=== PATIENT | female | born 1940 | race Hispanic/Latino ===

== ENCOUNTER 2020-01-04 16:23 | Inpatient (IN) | payer MEDICARE ==
[~2020-01-04] VITALS: Ht 157.5 cm; Wt 70.4 kg
[~2020-01-04 16:23] MED LIST: AMIODARONE HCL200 MG PO; AMLODIPINE BESY10 MG PO; ATORVASTATIN CA10 MG PO; DIGOXIN125 MCG PO; GLUCOPHAGE XR750 MG PO; IPRATROPIU0.2 MG/1 M NEB; KEFLEX500 MG PO; LACTULOSE20 GM/30 M PO; METOPROLOL SUCC25 MG PO; METOPROLOL TART50 MG PO; NORCO 7.5-3251 EACH PO; PHENERGAN SUPP25 MG RC; VITAMIN D400 UNIT PO; XARELTO10 MG PO; XARELTO20 MG PO; ZOFRAN4 MG PO
[2020-01-04] MEDS ORDERED: ONDANSETRON HCL INJ 2MG/ML 2ML 2 MG/ML VIAL IV STA (16:48)
[2020-01-04] MEDS ORDERED: SODIUM CHLORIDE 0.9% 1000ML 1,000 ML IV STA (16:48)
--- NOTE | 2020-01-04 17:03 | NUR ---
1 LITER NS BOLUS INITIATED, 4 MG ZOFRAN GIVEN SIVP
[2020-01-04 17:20] LABS: BASOPHILS # (AUTO) 0.1 (0.0-0.1); BASOPHILS % 0.7 % (0.0-1.0); EOSINOPHILS # (AUTO) 0.2 (0.0-0.4); EOSINOPHILS % 3.1 % (0.0-6.0); HEMOGLOBIN 15.9 g/dL (12.0-16.0); LYMPHOCYTES # (AUTO) 1.1 (1.0-3.2); LYMPHOCYTES % 14.7 % (18.0-39.1); MEAN CORPUSCULAR HEMOGLOBIN 29.4 pg (28-32); MEAN CORPUSCULAR HGB CONC 33.1 g/dL (31-35); MEAN CORPUSCULAR VOLUME 88.9 fL (81-99); MONOCYTES # (AUTO) 0.6 (0.2-0.8); MONOCYTES % 7.7 % (4.4-11.3); NEUTROPHILS # (AUTO) 5.5 (2.1-6.9); NEUTROPHILS % 72.6 % (38.7-80.0); PLATELET COUNT 248 x10e3/uL (140-360); RED CELL DISTRIBUTION WIDTH 17.1 % (11.7-14.4)
[2020-01-04 17:32] LABS: INR 2.11; PARTIAL THROMBOPLASTIN TIME 36.5 seconds (23.8-35.5); PROTHROMBIN TIME 25.2 seconds (11.9-14.5)
--- NOTE | 2020-01-04 17:33 | Diagnostic Imaging Report ---
EXAM: CHEST SINGLE (PORTABLE) DATE: 01/04/2020 4:48 PM INDICATION: Dark urine ^ERMD ORDER ^Y COMPARISON: Chest x-ray, 12/06/2019; chest CT, 12/02/2019 FINDINGS: Lines and tubes: None Cardiac silhouette remains enlarged. Opacity at the left lung base is again seen likely corresponding to mitral annular calcifications seen on previous CT. No pulmonary consolidation, large pleural effusion or pneumothorax. Mild central pulmonary vascular prominence. Upper abdomen unremarkable. No acute bony abnormality. Degenerative changes at the shoulders are again noted. IMPRESSION: Cardiomegaly with no pulmonary consolidation or artery pleural effusion. Mild central pulmonary vascular prominence. Signed by: Dr. Hilario Avila M.D. on 01/04/2020 5:30 PM
[2020-01-04 17:42] LABS: ALBUMIN 2.9 g/dL (3.5-5.0); ALBUMIN/GLOBULIN RATIO 0.7 (0.8-2.0); ANION GAP 17.2 mmol/L (8-16); CALCIUM 8.8 mg/dL (8.4-10.2); CREATININE, SERUM 1.42 mg/dL (0.57-1.11); MAGNESIUM 1.9 MG/DL (1.3-2.1); POTASSIUM 4.2 mmol/L (3.5-5.1)
[2020-01-04 17:44] LABS: CLARITY,URINE TURBID (CLEAR); COLOR,URINE BROWN (YELLOW)
[2020-01-04 17:45] LABS: BILIRUBIN,URINE 3+ (NEGATIVE); KETONES,URINE NEGATIVE (NEGATIVE); LEUKOCYTE ESTERASE ,URINE LARGE (NEGATIVE); PROTEIN,URINE DIPSTICK 3+ (NEGATIVE); URINE UROBILINOGEN 0.2 mg/dL (0.2 - 1)
[2020-01-04 17:52] LABS: CREATINE KINASE MB 2.8 ng/mL (0-5.0)
[2020-01-04 17:56] LABS: BACTERIA,URINE MANY /HPF; EPITHELIAL CELLS,URINE FEW /LPF; NITRITE,URINE POSITIVE (NEGATIVE); RBC,URINE 21-50 /HPF (0-5)
[2020-01-04] MEDS ORDERED: ONDANSETRON HCL INJ 2MG/ML 2ML 2 MG/ML VIAL IV PRN (19:00)
[2020-01-04] MEDS ORDERED: MORPHINE SULFATE INJ 4 MG/ML INJ 1ML IV PRN (19:00)
[2020-01-04] MEDS ORDERED: ASPIRIN 81 MG CHEW TAB PO ONE (19:00)
[2020-01-04] MEDS: CEFTRIAXONE SOD 1 GM/NS 50 ML 50 ML IV SCH (19:42)
[2020-01-04] MEDS: SODIUM CHLORIDE 0.9% 1000ML 1,000 ML IV SCH (20:00)
[2020-01-04] MEDS: ATORVASTATIN 10 MG TAB PO SCH (21:45)
[2020-01-04 23:15] VITALS: BP 138/76
[2020-01-04 23:30] VITALS: BP 138/76
[2020-01-05] VITALS (8 sets, daily range): BP systolic 127–143; BP diastolic 63–86
[2020-01-05 02:42] LABS: CREATINE KINASE MB 0.9 ng/mL (0-5.0)
[2020-01-05] MEDS: SODIUM CHLORIDE 0.9% 1000ML 1,000 ML IV SCH ×3 (05:25→17:54)
[2020-01-05 05:27] LABS: BASOPHILS # (AUTO) 0.1 (0.0-0.1); BASOPHILS % 0.8 % (0.0-1.0); EOSINOPHILS # (AUTO) 0.3 (0.0-0.4); EOSINOPHILS % 4.5 % (0.0-6.0); HEMOGLOBIN 14.3 g/dL (12.0-16.0); LYMPHOCYTES # (AUTO) 1.4 (1.0-3.2); LYMPHOCYTES % 21.4 % (18.0-39.1); MEAN CORPUSCULAR HEMOGLOBIN 29.3 pg (28-32); MEAN CORPUSCULAR HGB CONC 31.8 g/dL (31-35); MEAN CORPUSCULAR VOLUME 92.2 fL (81-99); MONOCYTES # (AUTO) 0.6 (0.2-0.8); MONOCYTES % 9.1 % (4.4-11.3); NEUTROPHILS % 62.8 % (38.7-80.0); PLATELET COUNT 183 x10e3/uL (140-360); RED BLOOD COUNT 4.88 x10e6/uL (3.6-5.1); RED CELL DISTRIBUTION WIDTH 16.6 % (11.7-14.4)
[2020-01-05] MEDS: CEFTRIAXONE SOD 1 GM/NS 50 ML 50 ML IV SCH ×2 (06:00→18:00)
[2020-01-05 06:01] LABS: CREATINE KINASE MB 1.4 ng/mL (0-5.0)
[2020-01-05 06:17] LABS: ALBUMIN 2.4 g/dL (3.5-5.0); ALBUMIN/GLOBULIN RATIO 0.9 (0.8-2.0); ANION GAP 14.5 mmol/L (8-16); CALCIUM 7.9 mg/dL (8.4-10.2); CREATININE, SERUM 1.18 mg/dL (0.57-1.11)
[2020-01-05 06:23] LABS: POTASSIUM 2.5 mmol/L (3.5-5.1)
--- NOTE | 2020-01-05 06:40 | NUR ---
Notified Dr Ulloa regarding lab alert potassium 2.5. Potassium chloride 30mEq IV X1, potassium chloride 20mEq po x1, recheck BMP 1200
[2020-01-05] MEDS ORDERED: POTASSIUM CHLORIDE 20 MEQ TAB CR PO NR (06:50)
[2020-01-05] MEDS ORDERED: POTASSIUM CHLORIDE 10MEQ/100ML 300 ML IV ONE (06:55)
--- NOTE | 2020-01-05 07:27 | NUR ---
Bedside report and walking rounds completed with oncoming nurse. Patient stable and in bed, no issues or concerns noted. Call light within reaching.
[2020-01-05] MEDS ORDERED: POTASSIUM CHLORIDE 20 MEQ TAB CR PO ONE (07:50)
--- NOTE | 2020-01-05 08:11 | NUR ---
ADDED NOTE; PRIMARY NURSE NEEDED PHONE NUMBERS ADDED FOR PT FAMILY GIVEN BY PATIENT. HANNAH FRAZIER: [phone] GRANDDAUGHTER PUNEET MCKEONA: [phone] DAUGHTER IN LAW
--- NOTE | 2020-01-05 10:28 | NUR ---
H&P cc: generalized weakness HPI: 78yoF, PCP , developed generalized weakness, not eating for weeks due to intractable N/V. Family states finally convinced pt to get PEG. Has chr morales for urinary retention. PMH: HTN, HLD, DM2, Obesity, Septic Shock, Acute respirature failure,Left HAP, MARINA, E.coli UTI, Hyperkalemia, Severe anemia s/p transfusion, A.fib, urinary retention s/p morales PSHx: hysterectomy, left hip due to fx, c-sec, knee allergies; see emr Fh/SH; no illicits; no cigs meds; see MAR ROS: unobtainable v/s revd PE: anicteric ns1s2 mod bs; MORALES soft nt nd no e/t; SCD skin dry flat affect labs/meds revd A/P: MARINA- IVF Complicated UTI-iv abx Indwelling morales/Chr morales due to Urinary retention- consult urology Hypokalemia- replace Dysphagia- GI for PEG PAF- AV blockade DM2- hba1c/lipids HTN- treat HLD Physical deconditioning- PT consult Prop: AC Dispo: Hold AC; PEG placement needed per family. Melecio Ulloa MD, PhD.
[2020-01-05] MEDS ORDERED: LACTULOSE SYRUP 20 GM/30 ML UDC PO PRN (10:30)
[2020-01-05] MEDS ORDERED: ACETAMINOPHEN 325 MG TAB PO PRN (10:30)
[2020-01-05] MEDS ORDERED: DOCUSATE SODIUM 100 MG CAP PO PRN (10:30)
[2020-01-05 12:19] LABS: CALCIUM 7.9 mg/dL (8.4-10.2); CREATININE, SERUM 1.14 mg/dL (0.57-1.11)
[2020-01-05 12:40] LABS: CREATINE KINASE MB 1.5 ng/mL (0-5.0)
[2020-01-05] MEDS: METOPROLOL TARTRATE 50 MG TAB PO SCH ×2 (13:00→21:45)
--- NOTE | 2020-01-05 16:00 | NUR ---
PT RECEIVED FROM [facility]. AAOX4. EDUCATED PT ABOUT FALL PRECAUTIONS. CALL LIGHT WITH IN EASY REACH. INSTRUCTED PT TO USE CALL LIGHT FOR ALL THE NEEDS. PT VERBALIZED UNDERSTANDING. FAMILY MEMBER AT BEDSIDE. BED IS LOW AND LOCKED. SIDE RAILS X2. BED ALARM IS ON. PT DENIES NEEDS AT THIS TIME.
[2020-01-05] MEDS: AMIODARONE HCL 200 MG TAB PO SCH (17:54)
--- NOTE | 2020-01-05 18:37 | NUR ---
Nutrition Intervention Note RD Recommendation(s) for Physician: -Encourage Glucerna nutrition supplements -Recommend consistent carbohydrate diet -Consider an appetite stimulant or nutrition support as medically appropriate due to poor PO intake The patient meets criteria for unspecified SEVERE protein-calorie malnutrition. Plan of Care: RD following, monitoring for tolerance and adequacy Nutrition reason for involvement: Nutrition Risk Trigger - MST 5 RD Assessment (01/05/2020) Pt is a 79 year old female admitted with failure to thrive, weakness, and UTI. Pt reports not eating much for the past month. Pt reports she had lost weight in the past month but was unsure of her usual weight. Per weight history in chart, pt weighed 168 lbs in November and currently has a weight of 155 lbs in chart. This would be 8% weight loss in 1 month significant weight loss. Pt also mentioned she has been experiencing N/V. Pt refused nutrition supplements when offered. Per MD note, a PEG tube is being considered. Will continue to monitor. Principal Problems/Diagnoses: failure to thrive, weakness, and UTI PMH: HTN, HLD, diabetes, obesity, septic shock, acute respiratory failure, afib, severe anemia, MARINA, and UTI GI: soft, non-tender abdomen Skin: stage 1 pressure ulcer to sacrum Labs: (01/05) Na 146, K 3.0, Cr 1.14, Ca 7.9 Meds: NaCl, metroprolol, colace, lactulose, atorvastatin, zofran Ht: 62 inches Wt: 155 lbs BMI: 28.4 kg/m2 IBW: 110 lbs Malnutrition Evaluation (01/05/2020 The patient meets criteria for unspecified SEVERE protein-calorie malnutrition. Energy intake: <75% of estimated energy requirements for 1 month Weight loss: > 5% in 1 month (Chronic) Fat loss: no loss identified Muscle loss: no loss identified Supporting Evidence: Fluid accumulation: unable to evaluate Functional Status: unable to evaluate Nutrition Prescription (Diet Order): cardiac diet Estimated Nutritional Needs: 0341-0245 calories/day (18-20 kcal/kg CBW) 70-106 g protein/day (1-1.5 g pro/kg CBW) Diet Adequacy: Not meeting calorie needs, Not meeting protein needs Tolerance: Tolerance pending Diet Education Needs Assessment: Diet education not indicated Nutrition Care Level: moderate Nutrition Diagnosis: Severe protein kcal malnutrition related to inadequate energy intake as evidenced by pt meeting <75% of estimated energy needs for 1 month and >5% weight loss in 1 month. Goal: Patient will meet 75-100% of estimated needs by follow up Progress: N/A Interventions: -carbohydrate - modified diet, Commercial beverage, , Recommended Modifications Monitoring/Evaluation: -Total energy intake, Total protein intake, , Modified diet, Liquid supplement, Weight change Signed: Elizabeth Aleman RD, LD
--- NOTE | 2020-01-05 19:10 | NUR ---
Patient visited in room during nursing rounds. Patient alert and oriented x3. No c/o discomfort or pain at this time. Pt notable weak especially on bilateral lower extremities. Patient has urinary retention and is currently on a 24french morales cather but will be replaced tonight with 18 occitan morales catheter as per order from Dr. Aramis Plascencia. Urine culture to be collected. Pt on IVF (NS at 125ml/hr). Stage 1 to sacrum and covered with Allevyn foam (C/D/I). Pt being turned Q2 hrs. Call pickard within reach.
--- NOTE | 2020-01-05 19:20 | NUR ---
BEDSIDE SHIFT REPORT GIVEN TO THE OFFICE HELPER RN. PT NEEDS NEW SANABRIA 18 FR AND NEW URINE CULTURE AFTER NEW SANABRIA INSERTION. ON COMING NURSE AWARE. PT REQUESTED A FEMALE NURSE TO INSERT SANABRIA. PT DENIED FURTHER NEEDS.
--- NOTE | 2020-01-05 20:15 | NUR ---
24F morales catheter removed. 18F Morales catheter placed with Karissa Ferreira RN, using sterile technique. approximately 100cc osullivan colored, cloudy urine noted. Morales secured appropriately to patients leg and bag placed below the patient to bed. Morales catheter placed for urinary retention per orders.
--- NOTE | 2020-01-05 20:15 | NUR ---
24 turkmen morales catheter was removed by Rebecca (CN) and Geovanna (staff nurse) and inserted or replaced with 18 turkmen morales catheter. Urine appear milky at this time and urine culture will be obtained as per MD order.
[2020-01-05] MEDS ORDERED: ZOLPIDEM TARTRATE 5 MG TAB PO PRN (21:00)
--- NOTE | 2020-01-05 21:47 | NUR ---
Pt escorted to radiology department via hospital bed for CT of abdomen and pelvis as ordered by .
--- NOTE | 2020-01-05 22:10 | NUR ---
Patient back in room from having CT of abdomen and pelvis. Pt in stable condition.
--- NOTE | 2020-01-05 22:44 | Diagnostic Imaging Report ---
CT Abdomen and Pelvis without contrast INDICATION: ^STONE PROTOCOL. UTI'S. URINARY RETENTION. TECHNIQUE: Thin collimation axial images obtained from the diaphragm to the level of the pubic symphysis without nonionic intravenous contrast. Dose reduction techniques used: Automated exposure control, adjustment of the mAs and/or kVp according to patient size, standardized low-dose protocol, and/or iterative reconstruction technique. RADIATION DOSE: Total DLP: 443.77 mGy*cm Estimated effective dose: (DLP x 0.015 x size factor) mSv CTDIvol has been reviewed. It is below the limits set by the Radiation Protocol Committee (RPC). COMPARISON: CT chest 12/02/2019. CT chest 11/10/2019 ABDOMEN FINDINGS: Lung Bases: Small left pleural effusion. Mild bibasilar atelectasis. The heart is enlarged with heavy calcifications of the mitral valve. Liver: Increased in attenuation. Multiple low attenuating lesions in each lobe measure up to 15 mm. Gallbladder: Present and is filled with hyperattenuating material and is stable in appearance. No ductal dilatation. Pancreas: Normal attenuation without mass. Spleen: Normal size without mass. Adrenal Glands: No evidence for mass. Kidneys: Right: No renal calculus. No cortical mass or hydronephrosis Left: No renal calculus. No cortical mass or hydronephrosis Lymph Nodes: No lymphadenopathy. Aorta: Scattered calcifications. No aneurysmal dilatation. PELVIS FINDINGS: Bowel: Stomach: Normal. Small Bowel: Normal in caliber with normal wall thickness. Large Bowel: Collapsed and contains high attenuating intraluminal material. Appendix: Not visualized. Bladder: Contains a Lipscomb catheter and small amount of high attenuating intraluminal material layering dependently. Ureters: No ureteral dilatation or calculus. The uterus is absent. No adnexal mass. Soft tissues: Unremarkable. Bones: Intramedullary cielo and pin in the left femur transfixing an intertrochanteric fracture into anatomic alignment without healing. Degenerative changes of the spine without compression deformity. There is retrolisthesis of L1 on L2, L2 on L3, and L3 on L4 of approximately 2 mm. A hemangioma is in L1. IMPRESSION: 1. Small amount of increased attenuation layering dependently in the urinary bladder may represent gravel or excreted contrast. 2. No evidence of renal calculus or obstructive uropathy. 3. High attenuation of the liver parenchyma may be the result of hepatocellular dysfunction or medication. 4. Hypoattenuation of the intraluminal contents of the gallbladder are stable suggestive of sludge. 5. Small left pleural effusion. Stable cardiomegaly. Signed by: Dr. Jovanna Mtz MD on 01/05/2020 10:26 PM
[2020-01-06] VITALS (8 sets, daily range): BP systolic 135–165; BP diastolic 71–88
--- NOTE | 2020-01-06 00:30 | NUR ---
Dr. Long Calixto came and visited pt in room. MD spoke to patient and obtained medical history. MD aware of patient condition and provided pt some options including possibly stretching or opening up esophagus and reglan IV medication every 6 hours. Pt elected to have reglan IV and stated she wants to think about the procedure involving the esophagus. MD informed pt important to decide very soon. Pt aware.
--- NOTE | 2020-01-06 00:49 | Consultation ---
DATE OF CONSULTATION: 01/05/2020 Urology Consultation REASON FOR CONSULTATION: Chronic urinary retention. HISTORY OF PRESENT ILLNESS: Dora Mancia is a 79-year-old woman, who had a fall. She had a femur fracture. She underwent ORIF of her femur fracture with a cielo. The patient was noted to have urinary retention. It has been persistent. She has had urinary tract infections. The patient's home health nurse was changing her Lipscomb catheter. The patient is admitted with problems eating and urological consultation was sought for the urinary retention. The patient denies previous stress and urinary incontinence. She denies previous urolithiasis. She denies any bladder surgery. She denies ever seeing a urologist. PAST MEDICAL AND SURGICAL HISTORY: 1. Hypertension. 2. Diabetes mellitus. 3. Coronary artery disease. 4. Urinary tract infections. 5. Atrial fibrillation. 6. Anxiety. 7. Hyperlipidemia. 8. History of pneumonia. 9. History of respiratory failure. 10. Obesity. 11. 4, para 4, by section. 12. Status post total abdominal hysterectomy, bilateral salpingo-oophorectomy. ALLERGIES: NIACIN. CURRENT MEDICATIONS: Please refer to the MAR. SOCIAL HISTORY: The patient denies smoking, ethanol, or drug use. She used to be in retail and also in retail management. FAMILY HISTORY: Noncontributory to the active urological problems. REVIEW OF SYSTEMS: Consistent with above history of present illness, past medical history, otherwise negative for all systems. PHYSICAL EXAMINATION: GENERAL: Relatively healthy-appearing 79-year-old woman, lying in bed, in no apparent distress. VITAL SIGNS: She is currently afebrile. Vital signs are currently stable. ABDOMEN: Soft, nondistended, and nontender without costovertebral angle tenderness. There is a healed infraumbilical midline scar. GENITOURINARY: There is an 18-Venezuelan silicone Lipscomb catheter with a 30 mL balloon. The patient reports that the catheter is uncomfortable for her. Internal examination is deferred. For the remaining physical examination systems, please refer to the ERT sheet and the history and physical. LABORATORY STUDIES: Urine culture is positive for gram-negative rods and enterococcus and a 2nd gram negative rods and sensitivities are pending. White blood cell count 6400, hemoglobin 14.3, and platelets 183,000. The patient's sodium is slightly elevated at 146. Her potassium is low at 3.0. Her creatinine is elevated at 1.14. The calcium is low at 7.9. Urinalysis significant for pyuria and microhematuria and bacteriuria. Urine culture is pending. There were no urologically significant radiographic studies in the computer. ASSESSMENT: 1. Urinary tract infections including one present on admission. 2. Chronic urinary retention. 3. Hyponatremia. 4. Hypokalemia. 5. Presumably chronic renal insufficiency. 6. Hypocalcemia. 7. Microhematuria. 8. Lipscomb catheter in situ. PLAN: 1. Change the Lipscomb catheter to latex Lipscomb catheter with 18-Venezuelan with 10 mL balloon. 2. I will order CT of the abdomen and pelvis due to the renal insufficiency and the recurrent urinary retention and chronic Lipscomb to determine whether there is any urolithiasis or any other etiology for urinary tract infections. 3. Leave the Lipscomb catheter in place for now. 4. The patient will follow up for urodynamics study in the office as an outpatient. 5. Ongoing urological followup is recommended. Thank you very much for involving us in the care of your patient. We will be happy to follow her along with you as well as an outpatient. Aramis Plascencia MD [place]/[facility]YS /[id number]
[2020-01-06] MEDS: METOCLOPRAMIDE HCL 10 MG/2ML VIAL IV SCH ×5 (01:37→23:43)
[2020-01-06] MEDS: SODIUM CHLORIDE 0.9% 1000ML 1,000 ML IV SCH ×3 (02:59→18:05)
--- NOTE | 2020-01-06 06:17 | NUR ---
Progress note O/N see below ROS: no f/c/s/VELÁZQUEZ/cp/confusion/leg pain/skin rash/tinnitus/back pain v/s revd PE: anicteric ns1s2 mod bs; MORALES soft nt nd no e/t; SCD skin dry flat affect labs/meds revd A/P: MARINA- IVF Complicated UTI-iv abx Indwelling morales/Chr morales due to Urinary retention- consult urology Hypokalemia- replace Dysphagia- GI for PEG PAF- AV blockade DM2- hba1c/lipids HTN- treat HLD Physical deconditioning- PT consult Prop: AC Dispo: Hold AC; PEG placement needed per family. 2-22 use lovenox while here; GNR UTI; cont abx; await PEG. Melecio Ulloa MD, PhD.
[2020-01-06] MEDS: CEFTRIAXONE SOD 1 GM/NS 50 ML 50 ML IV SCH ×2 (06:27→18:31)
--- NOTE | 2020-01-06 07:05 | NUR ---
RCD PT AT BED PT IS ALERT AND ORIENTED PT RESTING ON BED NO SIGNS OF ANY DISTRESS NOTED IV PATENT BY SALINE FLUSH BED LOW AND LOCKED CALL LIGHT IN REACH
[2020-01-06 07:49] LABS: ANION GAP 14.6 mmol/L (8-16); CALCIUM 7.9 mg/dL (8.4-10.2); CREATININE, SERUM 1.07 mg/dL (0.57-1.11); POTASSIUM 3.6 mmol/L (3.5-5.1)
[2020-01-06] MEDS: METOPROLOL TARTRATE 50 MG TAB PO SCH ×2 (09:00→23:43)
[2020-01-06] MEDS: RIVAROXABAN 20 MG TABLET PO SCH (09:00)
[2020-01-06] MEDS: AMIODARONE HCL 200 MG TAB PO SCH ×2 (09:00→17:00)
--- NOTE | 2020-01-06 18:40 | NUR ---
PT RESTING ON BED BED SIDE REPORT GIVEN TO ONCOMING NURSE
[2020-01-06] MEDS: ATORVASTATIN 10 MG TAB PO SCH (21:00)
[2020-01-07] VITALS (8 sets, daily range): BP systolic 139–175; BP diastolic 82–96
[2020-01-07] MEDS ORDERED: PANTOPRAZOLE 40 MG 10ML VIAL IV SCH (02:30)
[2020-01-07] MEDS: METOCLOPRAMIDE HCL 10 MG/2ML VIAL IV SCH ×3 (05:22→17:50)
[2020-01-07] MEDS: SODIUM CHLORIDE 0.9% 1000ML 1,000 ML IV SCH (05:22)
[2020-01-07] MEDS: CEFTRIAXONE SOD 1 GM/NS 50 ML 50 ML IV SCH (06:07)
--- NOTE | 2020-01-07 07:23 | NUR ---
Progress note O/N see below ROS: no f/c/s/VELÁZQUEZ/cp/confusion/leg pain/skin rash/tinnitus/back pain v/s revd PE: anicteric ns1s2 mod bs; MORALES soft nt nd no e/t; SCD skin dry flat affect labs/meds revd A/P: MARINA- IVF Complicated UTI-iv abx Indwelling morales/Chr morales due to Urinary retention- consult urology Hypokalemia- replace Dysphagia- GI for PEG PAF- AV blockade DM2- hba1c/lipids HTN- treat HLD Physical deconditioning- PT consult Prop: AC Dispo: Hold AC; PEG placement needed per family. 01-06 use lovenox while here; GNR UTI; cont abx; await PEG. 01/07 give free water; check labs; Melecio Ulloa MD, PhD.
[2020-01-07] MEDS ORDERED: DEXTROSE 5%/0.45% SOD CHL 1,000 ML IV ONE (07:30)
[2020-01-07] MEDS: AMIODARONE HCL 200 MG TAB PO SCH ×2 (09:00→17:00)
[2020-01-07] MEDS: PANTOPRAZOLE 40 MG 10ML VIAL IV SCH ×2 (09:00→21:57)
[2020-01-07] MEDS: METOPROLOL TARTRATE 50 MG TAB PO SCH ×2 (09:00→21:57)
[2020-01-07 09:16] LABS: ANION GAP 17.1 mmol/L (8-16); CALCIUM 7.9 mg/dL (8.4-10.2); CREATININE, SERUM 1.03 mg/dL (0.57-1.11); POTASSIUM 3.1 mmol/L (3.5-5.1)
--- NOTE | 2020-01-07 10:00 | NUR ---
PAGED AND NOTIFIED THE POTASSIUM LEVEL TO DR WARD AND GOT NEW ORDERS
[2020-01-07] MEDS ORDERED: POTASSIUM CHLORIDE 20 MEQ TAB CR PO ONE (10:10)
--- NOTE | 2020-01-07 15:00 | NUR ---
PAGED DR WARD AND NOTIFIED THE URINE CULTURE REPORT AND NOTIFIED THE SENSITIVITY REPORT GOT NEW ORDERS
[2020-01-07] MEDS: MEROPENEM 500MG/ NS 50ML 50 ML IV SCH (16:00)
[2020-01-07] MEDS ORDERED: MEROPENEM 500MG 500 MG in SODIUM CHLORIDE 0.9% 50ML 50 ML IV SCH (16:00)
--- NOTE | 2020-01-07 16:00 | NUR ---
PT GOING FOR PROCEDURE ON TOMORROW CONSENT SIGNED BY THE PT ,PT NPO AFTER MIDNIGHT
--- NOTE | 2020-01-07 18:40 | NUR ---
PT RESTING ON BED BED SIDE REPORT GIVEN TO ONCOMING NURSE
[2020-01-07] MEDS: ATORVASTATIN 10 MG TAB PO SCH (21:57)
[2020-01-08] VITALS (8 sets, daily range): BP systolic 137–160; BP diastolic 65–92
[2020-01-08] MEDS: METOCLOPRAMIDE HCL 10 MG/2ML VIAL IV SCH ×5 (00:02→23:49)
[2020-01-08] MEDS: MEROPENEM 500MG/ NS 50ML 50 ML IV SCH ×4 (00:02→20:00)
[2020-01-08 05:13] LABS: BASOPHILS % 0.5 % (0.0-1.0); EOSINOPHILS # (AUTO) 0.3 (0.0-0.4); EOSINOPHILS % 4.7 % (0.0-6.0); HEMOGLOBIN 12.5 g/dL (12.0-16.0); LYMPHOCYTES % 17.4 % (18.0-39.1); MEAN CORPUSCULAR HEMOGLOBIN 29.6 pg (28-32); MEAN CORPUSCULAR HGB CONC 32.9 g/dL (31-35); MEAN CORPUSCULAR VOLUME 89.8 fL (81-99); MONOCYTES # (AUTO) 0.4 (0.2-0.8); MONOCYTES % 7.9 % (4.4-11.3); NEUTROPHILS # (AUTO) 3.8 (2.1-6.9); NEUTROPHILS % 67.5 % (38.7-80.0); PLATELET COUNT 190 x10e3/uL (140-360); RED BLOOD COUNT 4.23 x10e6/uL (3.6-5.1)
[2020-01-08 05:32] LABS: ANION GAP 13.7 mmol/L (8-16); CALCIUM 7.2 mg/dL (8.4-10.2); CREATININE, SERUM 0.95 mg/dL (0.57-1.11)
[2020-01-08 05:50] LABS: POTASSIUM 2.7 mmol/L (3.5-5.1)
--- NOTE | 2020-01-08 05:58 | NUR ---
Spoke with Dr. Ulloa regarding Potassium result. New orders received.
[2020-01-08] MEDS: SODIUM CHLORIDE 0.9% 1000ML 1,000 ML IV SCH (06:27)
[2020-01-08] MEDS ORDERED: POTASSIUM CHLORIDE 10MEQ/100ML 300 ML IV ONE (06:30)
[2020-01-08] MEDS ORDERED: SODIUM CHLORIDE 0.9% 1000ML 1,000 ML ONE (06:31)
[2020-01-08] MEDS: PANTOPRAZOLE 40 MG 10ML VIAL IV SCH ×2 (08:53→21:46)
[2020-01-08] MEDS: AMIODARONE HCL 200 MG TAB PO SCH ×2 (09:00→17:00)
[2020-01-08] MEDS: METOPROLOL TARTRATE 50 MG TAB PO SCH ×2 (09:00→21:46)
--- NOTE | 2020-01-08 11:56 | NUR ---
Progress note O/N see below ROS: no f/c/s/VELÁZQUEZ/cp/confusion/leg pain/skin rash/tinnitus/back pain v/s revd PE: anicteric ns1s2 mod bs; MORALES soft nt nd no e/t; SCD skin dry flat affect labs/meds revd A/P: MARINA- IVF Complicated UTI-iv abx Indwelling morales/Chr morales due to Urinary retention- consult urology Hypokalemia- replace Dysphagia- GI for PEG PAF- AV blockade DM2- hba1c/lipids HTN- treat HLD Physical deconditioning- PT consult Prop: AC Dispo: Hold AC; PEG placement needed per family. 01-06 use lovenox while here; GNR UTI; cont abx; await PEG. 01/07 give free water; check labs; 01/08 MDR Enterococcus faecalis, Kluyvera ascorbata, Enterobacter cloacae- merrem. Replace K; PEG pending; Melecio Ulloa MD, PhD.
--- NOTE | 2020-01-08 14:15 | Consultation ---
DATE OF CONSULTATION: 01/08/2020 INFECTIOUS DISEASE CONSULT REASON FOR CONSULTATION: Multidrug resistant urinary tract infection. Thank you, Dr. Ulloa, for asking me to see this patient. HISTORY OF PRESENT ILLNESS: The patient is a 79-year-old woman, who was referred for multidrug resistant urinary tract infection. She presented to the emergency department with nausea, loss of appetite, generalized weakness and fatigue. The patient felt like vomiting, but was unable to vomit. The patient has had indwelling Lipscomb catheter since October 2019 when she was hospitalized for left hip fracture. Lipscomb catheter had been exchanged in the emergency room this admission. PAST MEDICAL HISTORY: Diabetes mellitus type 2, hypertension, hyperlipidemia, coronary artery disease, atrial fibrillation. PAST SURGICAL HISTORY: section, hysterectomy, left hip replacement and left knee surgery. ALLERGIES: NIACIN. MEDICATIONS: See JAN. The current antibiotic is meropenem 500 mg IV piggyback q.8 hours. The patient was receiving ceftriaxone earlier. IMMUNIZATION: The patient received influenza and pneumococcal vaccination prior to admission. FAMILY HISTORY: Noncontributory. SOCIAL HISTORY: No alcohol, tobacco, or recreational drug use. REVIEW OF SYSTEMS: As per history of present illness. The patient denies fever, chills, cough and shortness of breath. She has intermittent nausea, persistent loss of appetite and fatigue. PHYSICAL EXAMINATION: GENERAL: No acute distress and nontoxic. VITAL SIGNS: T-max 97.7, pulse rate 67, respiratory rate 20, blood pressure 137/82, weight 155 pounds. HEENT: Normocephalic and atraumatic. There is no icterus or injection of conjunctiva. There is no ear or nasal discharge. Moist oral mucosa. No pharyngeal erythema or exudate. NECK: Supple. No meningismus. LUNGS: Good air entry bilaterally. HEART: Normal S1 and S2. ABDOMEN: Soft and nontender. EXTREMITIES: No edema, clubbing, or cyanosis. SKIN: No acute erythema. HEALTHCARE PROF: Awake, alert, and oriented to person, place, and time. Nonfocal. LABORATORY AND DIAGNOSTICS: WBC 5560, hemoglobin 12.5, platelets 190,000, neutrophils 67.5, lymphocytes 17.4, monocytes 7.9, eosinophils 4.7, and basophils 0.5. BUN 9, creatinine 0.95, serum potassium 2.7. Urine sample from the emergency room grew Kluyvera ascorbata, Enterococcus faecalis and Enterobacter cloacae. IMPRESSION: 1. ?Urinary tract infection, present on admission. 2. Nausea. PLAN: 1. Remove Lipscomb catheter if possible. 2. Change meropenem to 500 mg IV piggyback q.6 hours. MD VICTOR [facility]/MODL /[id number] MTDD
[2020-01-08] MEDS ORDERED: PROPOFOL IV EMULSION 10 MG/ML 20 ML VIAL ONE (18:40)
--- NOTE | 2020-01-08 19:17 | NUR ---
Report given to oncoming nurse of patient's status. Resting in bed. AAOX3 to time, person, place. Respirations even and unlabored. Side rails upx2, call light within reach, bed alarm on, family member at bedside.
--- NOTE | 2020-01-08 19:39 | NUR ---
pt received. or nurse taking pt to off unit for procedure. no distress noted upon transfer.
[2020-01-08] MEDS ORDERED: POTASSIUM CHLORIDE 20MEQ/100ML IVPB IV ONE (20:08)
--- NOTE | 2020-01-08 20:25 | NUR ---
spoke to dr radha segal regarding pt procedure. new orders received.
--- NOTE | 2020-01-08 20:27 | NUR ---
report received from or nurse at time.
[2020-01-08] MEDS ORDERED: POTASSIUM CHLORIDE 20MEQ/15ML UDC PO ONE (20:30)
--- NOTE | 2020-01-08 20:35 | NUR ---
pt returned to unit. pt requesting bed sofia. loose bm noted. pt cleaned and made comfortable. spoke to dr radha segal regarding medication clarification. new orders given at time.
[2020-01-08] MEDS ORDERED: POTASSIUM CHLORIDE 20MEQ/100ML 200 ML IV ONE (21:15)
[2020-01-08] MEDS ORDERED: POTASSIUM CHLORIDE 20 MEQ TAB CR PO ONE (21:15)
[2020-01-08] MEDS: ATORVASTATIN 10 MG TAB PO SCH (21:44)
--- NOTE | 2020-01-08 21:45 | NUR ---
attempted to give potassium iv per md orders. pt not tolerating well. infusion slowed. pt cont to say it altman and is not tolerable. new iv access obtained to left wrist 20g. pt tolerated well but still unable to tolerate the infusion. iv stopped at time per pt request. spoke to dr radha segal regarding pt unable to tolerate infusion. new orders received.
[2020-01-08] MEDS ORDERED: KCL 40MEQ/0.9% SOD CHL 1,000 ML IV ONE (22:30)
--- NOTE | 2020-01-08 23:00 | NUR ---
spoke to pharmacy regarding ns with 40meq per order. unable to obtain medication at time. spoke to dr radha segal regarding medication. new orders given.
[2020-01-08] MEDS: KCL 20MEQ/.9 SOD CHL 1,000 ML IV SCH (23:49)
[2020-01-09] VITALS (9 sets, daily range): BP systolic 140–164; BP diastolic 68–88
[2020-01-09] MEDS: MEROPENEM 500MG/ NS 50ML 50 ML IV SCH ×4 (02:02→21:09)
--- NOTE | 2020-01-09 02:12 | NUR ---
pt requesting bed sofia at time. bm noted. pt cleaned and repositioned. stool sample sent to lab at time.
--- NOTE | 2020-01-09 04:53 | NUR ---
pt resting. no ss of distress noted. call pickard within reach.
[2020-01-09 05:02] LABS: BASOPHILS # (AUTO) 0.1 (0.0-0.1); BASOPHILS % 1.5 % (0.0-1.0); EOSINOPHILS # (AUTO) 0.3 (0.0-0.4); EOSINOPHILS % 5.3 % (0.0-6.0); HEMATOCRIT 41.8 % (34.2-44.1); HEMOGLOBIN 12.8 g/dL (12.0-16.0); LYMPHOCYTES % 21.2 % (18.0-39.1); MEAN CORPUSCULAR HEMOGLOBIN 29.3 pg (28-32); MEAN CORPUSCULAR HGB CONC 30.6 g/dL (31-35); MEAN CORPUSCULAR VOLUME 95.7 fL (81-99); MONOCYTES # (AUTO) 0.4 (0.2-0.8); MONOCYTES % 8.5 % (4.4-11.3); NEUTROPHILS # (AUTO) 2.9 (2.1-6.9); NEUTROPHILS % 61.4 % (38.7-80.0); PLATELET COUNT 82 x10e3/uL (140-360); RED BLOOD COUNT 4.37 x10e6/uL (3.6-5.1)
[2020-01-09 05:17] LABS: BLOOD UREA NITROGEN 7 mg/dL (7-26); BUN/CREATININE RATIO 8 (6-25); CALCIUM 7.2 mg/dL (8.4-10.2); CARBON DIOXIDE 21 mmol/L (22-29); CHLORIDE 113 mmol/L (98-107); CREATININE, SERUM 0.89 mg/dL (0.57-1.11); EST GLOMERULAR FILTRATION RATE > 60 ML/MIN (60-); GLUCOSE 67 mg/dL (74-118); SODIUM 142 mmol/L (136-145)
[2020-01-09] MEDS: SODIUM CHLORIDE 0.9% 1000ML 1,000 ML IV SCH (05:34)
[2020-01-09] MEDS: METOCLOPRAMIDE HCL 10 MG/2ML VIAL IV SCH ×4 (05:39→23:57)
--- NOTE | 2020-01-09 06:47 | NUR ---
Progress note O/N see below ROS: no f/c/s/VELÁZQUEZ/cp/confusion/leg pain/skin rash/tinnitus/back pain v/s revd PE: anicteric ns1s2 mod bs; MORALES soft nt nd no e/t; SCD skin dry flat affect labs/meds revd A/P: MARINA- IVF Complicated UTI-iv abx Indwelling morales/Chr morales due to Urinary retention- consult urology Hypokalemia- replace Dysphagia- GI for PEG PAF- AV blockade DM2- hba1c/lipids HTN- treat HLD Physical deconditioning- PT consult Prop: AC Dispo: Hold AC; PEG placement needed per family. 01-06 use lovenox while here; GNR UTI; cont abx; await PEG. 01/07 give free water; check labs; 01/08 MDR Enterococcus faecalis, Kluyvera ascorbata, Enterobacter cloacae- merrem. Replace K; PEG pending; 01/09 PEG pending Melecio Ulloa MD, PhD.
[2020-01-09] MEDS: PANTOPRAZOLE 40 MG 10ML VIAL IV SCH ×2 (09:00→21:09)
[2020-01-09] MEDS: AMIODARONE HCL 200 MG TAB PO SCH ×2 (09:00→16:26)
[2020-01-09] MEDS: RIVAROXABAN 20 MG TABLET PO SCH (09:00)
[2020-01-09] MEDS: METOPROLOL TARTRATE 50 MG TAB PO SCH ×2 (09:00→21:10)
[2020-01-09] MEDS: KCL 20MEQ/.9 SOD CHL 1,000 ML IV SCH (12:00)
--- NOTE | 2020-01-09 19:48 | Operative Report ---
DATE OF PROCEDURE: 01/09/2020 SURGEON: Long Calixto MD PROCEDURE: EGD with biopsies and esophageal dilatation. INDICATIONS FOR EGD: Dysphagia, poor p.o. intake, weight loss. MEDICATIONS: The patient was done under MAC, please see anesthesiologist's note. PROCEDURE IN DETAIL: With the patient in the left lateral decubitus position, a flexible fiberoptic Olympus gastroscope was introduced into the esophagus under direct visualization without any difficulty. There was some patchy erythema noted in distal esophagus. A mild stricture was noted at the GE junction that was dilated to size 52-[place] Ying. The scope was then advanced with ease into the stomach, mucosa overlying the antrum and the body revealed some patchy erythema and [id number] edema, and biopsies were obtained and sent to stain for H. pylori. The pylorus was intubated with ease and the scope was advanced all the way to the second portion of the duodenum. Mucosa overlying the proximal second portion and duodenal bulb appeared to be within normal limits. The scope was then withdrawn back into the stomach and retroflexed, mucosa overlying the fundus and the cardia appeared to be within normal limits. The scope was then straightened out and it was subsequently withdrawn. On the way out, 2 minute tongues of velvety red mucosa were noted to extend proximally from the GE junction, biopsies were obtained to rule out Bills. The patient tolerated the procedure well. IMPRESSION: 1. Distal esophagitis, mild. 2. Rule out Bills esophagus. 3. Esophageal stricture, GE junction, dilated to size 52-[place] Ying. 4. Gastritis, biopsied, biopsies sent to stain for Helicobacter pylori. PLAN: Follow up histology. Initiate Protonix 40 mg 1 p.o. q.a.m. before meals. Long Calixto MD [facility]/MODL /[id number] cc: Melecio Ulloa MD
--- NOTE | 2020-01-09 19:51 | NUR ---
report given to oncoming nurse, walking rounds complete
[2020-01-09] MEDS: ATORVASTATIN 10 MG TAB PO SCH (21:09)
[2020-01-10] MEDS: MEROPENEM 500MG/ NS 50ML 50 ML IV SCH ×3 (03:00→14:00)
[2020-01-10 04:45] VITALS: BP 160/91
[2020-01-10] MEDS: METOCLOPRAMIDE HCL 10 MG/2ML VIAL IV SCH (06:21)
[2020-01-10] MEDS: SODIUM CHLORIDE 0.9% 1000ML 1,000 ML IV SCH (06:22)
--- NOTE | 2020-01-10 06:41 | NUR ---
Progress note O/N see below ROS: no f/c/s/VELÁZQUEZ/cp/confusion/leg pain/skin rash/tinnitus/back pain v/s revd PE: anicteric ns1s2 mod bs; MORALES soft nt nd no e/t; SCD skin dry flat affect labs/meds revd A/P: MARINA- IVF Complicated UTI-iv abx Indwelling morales/Chr morales due to Urinary retention- consult urology Hypokalemia- replace Dysphagia- GI for PEG PAF- AV blockade DM2- hba1c/lipids HTN- treat HLD Physical deconditioning- PT consult Prop: AC Dispo: Hold AC; PEG placement needed per family. 01-06 use lovenox while here; GNR UTI; cont abx; await PEG. 01/07 give free water; check labs; 01/08 MDR Enterococcus faecalis, Kluyvera ascorbata, Enterobacter cloacae- merrem. Replace K; PEG pending; 01/09 PEG pending 01/10 control BP; PEG not placed; EGD done- f/u report; Melecio Ulloa MD, PhD.
[2020-01-10 07:55] VITALS: BP 138/87
[2020-01-10 08:30] VITALS: BP 138/87
[2020-01-10] MEDS: PANTOPRAZOLE 40 MG 10ML VIAL IV SCH (09:00)
[2020-01-10] MEDS: AMIODARONE HCL 200 MG TAB PO SCH (09:00)
[2020-01-10] MEDS: RIVAROXABAN 20 MG TABLET PO SCH (09:00)
[2020-01-10] MEDS ORDERED: METOPROLOL TARTRATE 50 MG TAB PO SCH (09:00)
--- NOTE | 2020-01-10 10:28 | NUR ---
CM spoke to pt at bedside regarding pt's goal for discharge. Pt wants to return home with her children, with home health services. Pt states she's currently on service with [facility] and wants to resume services with them after discharge. Choice letter signed and placed in chart. Copy to pt's transition of care folder. CM business card left at bedside for any questions/concerns. Message left for Dr. Ulloa regarding dc plan. Awaiting response.
[2020-01-10] MEDS ORDERED: ONDANSETRON HCL 4 MG ORAL DISINTEGRATING TAB PO PRN (11:30)
[2020-01-10] MEDS ORDERED: METOCLOPRAMIDE HCL 10 MG TAB PO SCH (12:00)
[2020-01-10 12:06] VITALS: BP 166/98
--- NOTE | 2020-01-10 12:30 | NUR ---
Nutrition Intervention Note RD Recommendation(s) for Physician: -Continue current diet per MD. -Encourage Glucerna nutrition supplements -Consider an appetite stimulant or nutrition support as medically appropriate due to poor PO intake -TF recommendation via peg if medically feasible and needed: Glucerna 1.2 at 10 ml/hr advance as tolerated to goal rate of 50 ml/hr with 30 ml of water flushed every horus ( 1440 kcal, 72 gram protein) -IVF management and additional flushes per MD. The patient meets criteria for unspecified SEVERE protein-calorie malnutrition. Plan of Care: RD following, monitoring for tolerance and adequacy. TF. Nutrition reason for involvement: f/u RD Assessment 01/10: Follow up: Pt has been advanced to a GI soft diet. Per MD notes-pt was going to get a peg, but per nurse the pt has never received one, unknown if pt is still going to get one, will provide TF recommendations above if needed. Possible d/c soon per EMR. Pt reported that she has been eating well and her appetite has improved, observed pt consuming her breakfast. Pt had surgery yesterday, no N/V since then and she had a BM this morning. Pt has been consuming 75% of meals per FS. Pt had no other questions or concerns. Will continue to monitor. (01/05/2020) Pt is a 79 year old female admitted with failure to thrive, weakness, and UTI. Pt reports not eating much for the past month. Pt reports she had lost weight in the past month but was unsure of her usual weight. Per weight history in chart, pt weighed 168 lbs in November and currently has a weight of 155 lbs in chart. This would be 8% weight loss in 1 month significant weight loss. Pt also mentioned she has been experiencing N/V. Pt refused nutrition supplements when offered. Per MD note, a PEG tube is being considered. Will continue to monitor. Principal Problems/Diagnoses: failure to thrive, weakness, and UTI PMH: HTN, HLD, diabetes, obesity, septic shock, acute respiratory failure, afib, severe anemia, MARINA, and UTI GI: Abd: soft ,nontender, LBM: 01/07 per FS Skin: stage 1 pressure ulcer to sacrum Labs: 01/10: POC GM: 67 (01/05) Na 146, K 3.0, Cr 1.14, Ca 7.9 Meds:, metroprolol, colace, lactulose, atorvastatin, zofran, abx, protonix reglan, IVF: NS at 40 ml/hr Ht: 62 inches Wt: 155 lbs BMI: 28.4 kg/m2 IBW: 110 lbs Malnutrition Evaluation (01/05/2020 The patient meets criteria for unspecified SEVERE protein-calorie malnutrition. Energy intake: <75% of estimated energy requirements for 1 month Weight loss: > 5% in 1 month (Chronic) Fat loss: no loss identified Muscle loss: no loss identified Supporting Evidence: Fluid accumulation: unable to evaluate Functional Status: unable to evaluate Nutrition Prescription (Diet Order): GI soft Estimated Nutritional Needs: 2588-1783 calories/day (18-20 kcal/kg CBW) 70-106 g protein/day (1-1.5 g pro/kg CBW) Diet Adequacy: meeting calorie needs, meeting protein needs Tolerance: Tolerating po Diet Education Needs Assessment: Diet education not indicated Nutrition Care Level: moderate Nutrition Diagnosis: Severe protein kcal malnutrition related to inadequate energy intake as evidenced by pt meeting <75% of estimated energy needs for 1 month and >5% weight loss in 1 month. Goal: Patient will meet 75-100% of estimated needs by follow up Progress: progressing Interventions: -carbohydrate, fiber - modified diet, Commercial beverage, , Recommended Modifications, composition, rate, formula, IVF Monitoring/Evaluation: -Total energy intake, Total protein intake, formula, Modified diet, Liquid supplement, Weight change Signed: Leighann Rosas RD, LD
--- NOTE | 2020-01-10 13:53 | NUR ---
IMM letter delivered and explained to pt. She verbalized understanding. Signed copy placed in chart. Copy to pt's transition of care folder. Received order from Dr. Ulloa to resume home health services. ANUJ called [facility] and spoke to Adriana who verified that pt is on service with them. Informed her that pt is discharging today. Resumption order and clinical faxed to [phone] / P [phone].
--- NOTE | 2020-01-10 16:00 | NUR ---
pt discharged home with family members, pt has no prescriptions at this time, pt and family member was asked to followup with her PCP and her GI doctor in 2 week, pt iv site removed no bleeding no swelling no redness to site.
[2020-01-10] MEDS ORDERED: PANTOPRAZOLE SOD 40 MG TABEC PO SCH (21:00)
--- NOTE | 2020-01-22 06:24 | NUR ---
D/C summary Principal Dx: MARINA- IVF Complicated UTI-iv abx MDR Enterococcus faecalis UTI Kluyvera ascorbata UTI Enterobacter cloacae UTI Indwelling morales/Chr morales due to Urinary retention- consult urology Hypokalemia- replace Dysphagia- s/p esophageal dilatation SEcondary Dx: PAF- AV blockade DM2- hba1c/lipids HTN- treat HLD Physical deconditioning- PT consult Prop: AC Dispo: Hold AC; PEG placement needed per family. 01-06 use lovenox while here; GNR UTI; cont abx; await PEG. 01/07 give free water; check labs; 01/08 MDR Enterococcus faecalis, Kluyvera ascorbata, Enterobacter cloacae- merrem. Replace K; PEG pending; 01/09 PEG pending 01/10 control BP; PEG not placed; EGD done- f/u report; d/c home f/u pcp 1 week and GI 1 week stable d/c>35mins Melecio Ulloa MD, PhD.
== END 2020-01-10 16:19 | disposition home health service (06) | DRG 698 ==
LOC: ER 16:23 → ERHOLD 18:50 → IMCU 22:59 → OBSVTOIN 01-05 13:59 → MED/SURG2 01-05 16:18
PROVIDERS: ADMIT Internal Medicine; ATTEND Internal Medicine
PROC: 0T2BX0Z Change Drainage Device in Bladder, External Approach (ICD-10-PCS; principal; 2020-01-05)
PROC: 0DB48ZX Excision of Esophagogastric Junction, Via Natural or Artificial Opening Endoscopic, Diagnostic (ICD-10-PCS; 2020-01-09)
PROC: 0DB78ZX Excision of Stomach, Pylorus, Via Natural or Artificial Opening Endoscopic, Diagnostic (ICD-10-PCS; 2020-01-09)
PROC: 0DB68ZX Excision of Stomach, Via Natural or Artificial Opening Endoscopic, Diagnostic (ICD-10-PCS; 2020-01-09)
PROC: 0D758ZZ Dilation of Esophagus, Via Natural or Artificial Opening Endoscopic (ICD-10-PCS; 2020-01-09 14:17)
DX: T83.518A Infection and inflammatory reaction due to other urinary catheter, initial encounter (principal); E43 Unspecified severe protein-calorie malnutrition; N17.9 Acute kidney failure, unspecified; E87.1 Hypo-osmolality and hyponatremia; Z16.24 Resistance to multiple antibiotics; B96.89 Other specified bacterial agents as the cause of diseases classified elsewhere; B95.2 Enterococcus as the cause of diseases classified elsewhere; E87.6 Hypokalemia; E83.51 Hypocalcemia; I10 Essential (primary) hypertension; E78.5 Hyperlipidemia, unspecified; R13.10 Dysphagia, unspecified; I25.10 Atherosclerotic heart disease of native coronary artery without angina pectoris; I48.0 Paroxysmal atrial fibrillation; E11.9 Type 2 diabetes mellitus without complications; F41.9 Anxiety disorder, unspecified; K20.9 Esophagitis, unspecified; K22.70 Barrett's esophagus without dysplasia; K22.2 Esophageal obstruction; K29.70 Gastritis, unspecified, without bleeding; R62.7 Adult failure to thrive; Z79.01 Long term (current) use of anticoagulants; K21.9 Gastro-esophageal reflux disease without esophagitis
CPT/HCPCS: 36415; 43239; 43450; 71045; 74176; 80048; 80053; 81001; 82550; 82553; 82948; 83690; 83735; 83880; 84132; 84484; 85025; 85610; 85730; 87086; 87186; 87493; 88305; 88312; 93005; 96367; 96375; 96376; 97139; 99284; G0378; J0696; J2405; J2765; J3480; J7030

== ENCOUNTER 2020-01-20 15:15 | Observation (INO) | payer MEDICARE ==
[~2020-01-20] VITALS: Ht 157.5 cm; Wt 70.0 kg
[2020-01-20] MEDS ORDERED: ASPIRIN 81 MG CHEW TAB PO ONE (15:30)
[2020-01-20] MEDS ORDERED: NICARDIPINE 20MG/200ML PREMIX 200 ML IV PRN (15:45)
[2020-01-20] MEDS ORDERED: DILTIAZEM HCL 125 ML IV STA (16:11)
[2020-01-20 16:23] LABS: BASOPHILS # (AUTO) 0.1 (0.0-0.1); BASOPHILS % 0.5 % (0.0-1.0); EOSINOPHILS # (AUTO) 0.2 (0.0-0.4); EOSINOPHILS % 1.8 % (0.0-6.0); HEMOGLOBIN 14.1 g/dL (12.0-16.0); LYMPHOCYTES # (AUTO) 2.3 (1.0-3.2); LYMPHOCYTES % 24.6 % (18.0-39.1); MEAN CORPUSCULAR HGB CONC 32.8 g/dL (31-35); MEAN CORPUSCULAR VOLUME 88.5 fL (81-99); MONOCYTES # (AUTO) 0.7 (0.2-0.8); MONOCYTES % 7.2 % (4.4-11.3); PLATELET COUNT 220 x10e3/uL (140-360); RED BLOOD COUNT 4.86 x10e6/uL (3.6-5.1); RED CELL DISTRIBUTION WIDTH 15.7 % (11.7-14.4)
[2020-01-20 16:26] LABS: INR 0.97; PROTHROMBIN TIME 13.5 seconds (11.9-14.5)
[2020-01-20 16:27] LABS: PARTIAL THROMBOPLASTIN TIME 24.6 seconds (23.8-35.5)
[2020-01-20 16:39] LABS: ALBUMIN 2.8 g/dL (3.5-5.0); ANION GAP 20.5 mmol/L (8-16); CALCIUM 8.4 mg/dL (8.4-10.2); CREATININE, SERUM 1.23 mg/dL (0.57-1.11)
[2020-01-20 16:59] LABS: POTASSIUM 2.5 mmol/L (3.5-5.1)
[2020-01-20 17:01] LABS: CREATINE KINASE MB 2.3 ng/mL (0-5.0); THYROID STIMULATING HORMONE 1.219 uIU/mL (0.350-4.940)
[2020-01-20] MEDS ORDERED: POTASSIUM CHLORIDE 20 MEQ TAB CR PO NR (17:15)
[2020-01-20] MEDS ORDERED: POTASSIUM CHLORIDE 20MEQ/100ML 100 ML IV ONE (17:15)
--- NOTE | 2020-01-20 17:20 | NUR ---
diltiazam stopped per dr. oswald's orders Addendum: 01/21/20 at 1054 by PASHA sacral redness, i/o in place left leg, skin tear r f/a
[2020-01-20] MEDS ORDERED: POTASSIUM CHLORIDE 10MEQ EA PO NR (17:30)
--- NOTE | 2020-01-20 17:55 | Diagnostic Imaging Report ---
EXAMINATION: CHEST SINGLE (PORTABLE) INDICATION: Unresponsive during bath. COMPARISON: Chest radiograph 01/04/2020. FINDINGS: TUBES and LINES: None. LUNGS: Lungs are moderately inflated. Mild patchy bibasilar opacities, likely atelectasis. Central vascular congestion. PLEURA: No pleural effusion or pneumothorax. HEART AND MEDIASTINUM: The cardiomediastinal silhouette is mildly enlarged. Atherosclerotic calcifications of the aortic arch. Mitral annular calcifications. BONES AND SOFT TISSUES: No acute osseous lesion. Soft tissues are unremarkable. UPPER ABDOMEN: No free air under the diaphragm. IMPRESSION: No acute thoracic abnormality. Signed by: Dr. Jaime Aiken MD on 01/20/2020 5:52 PM
--- NOTE | 2020-01-20 18:00 | NUR ---
DILTIAZAM RE-STARTED
[2020-01-20] MEDS ORDERED: PANTOPRAZOLE SO40 MG PO (18:52)
[2020-01-20] MEDS ORDERED: SUCRALFATE1 GM PO (18:54)
[2020-01-20] MEDS ORDERED: DIGOXIN INJ 0.25 MG/ML 2 ML AMP IV NR (19:00)
[2020-01-20] MEDS ORDERED: METOPROLOL SUCC25 MG PO (19:01)
[2020-01-20] MEDS ORDERED: RISEDRONATE SOD35 MG (19:01)
[2020-01-20] MEDS ORDERED: NORVASC5 MG PO (19:01)
[2020-01-20] MEDS ORDERED: ONDANSETRON HCL INJ 2MG/ML 2ML 2 MG/ML VIAL IV PRN (19:45)
--- NOTE | 2020-01-20 20:00 | NUR ---
PT RECEIVED FROM ER VIA STRETCHER INTO 104. PT IS ALERT AND ORIENTED X3. RESPIRATIONS EVEN AND UNLABORED. O2 ON 2L PER N/C. LUNGS CLEAR. TELE ON. IO IN LEFT LEG BELOW KNEE. EJ IN LEFT NECK. SITE INTACT. ORINETED TO ROOM AND FLOOR. CALL LIGHT WITHIN REACH. BED IN LOW POSITION. DENIES PAIN.HOME MEDS AT BEDSIDE- THEN PLACED IN MED ROOM.
[2020-01-20 21:00] VITALS: BP 134/79
--- NOTE | 2020-01-20 21:21 | NUR ---
PER DR. OLGA LIDIA WARD, REMOVE IO FROM RLE
[2020-01-20] MEDS ORDERED: DILTIAZEM HCL 5 MG/ML 5 ML VIAL IV NR (22:00)
[2020-01-20 22:16] VITALS: BP 134/79
[2020-01-21] VITALS (9 sets, daily range): BP systolic 115–148; BP diastolic 65–79
--- NOTE | 2020-01-21 01:07 | NUR ---
PT REPORTED PRESSURE IN CHEST WHICH REOLVED. EKG DONE NO CHANGES - AFIB. VS STABLE. ORAL CARE GIVEN AND PT USING YONKER TO SUCTION HER MOUTH. SECOND CARDIAC MARKER DRAWN AT 0048. WILL MONITOR RESULTS.
[2020-01-21 01:41] LABS: CREATINE KINASE 19 IU/L (29-168)
[2020-01-21 01:44] LABS: CREATINE KINASE MB < 1.00 ng/mL (0-4.3)
--- NOTE | 2020-01-21 06:04 | NUR ---
IO REMOVED PER DR. WARD ORDER; CATHETER INTACT, PRESSURE APPLIED TO SITE, NO ACTIVE BLEEDING NOTED; GAUZE AND COBAN APPLIED TO SITE; PT TOLERATED PROCEDURE WELL.
--- NOTE | 2020-01-21 09:05 | NUR ---
H&P cc: generalized weakness HPI: 78yoF, PCP , developed generalized weakness with nausea; Had dizzy spell. did not actually pass out. PMH: HTN, HLD, DM2, Obesity, Septic Shock, Acute respirature failure,Left HAP, MARINA, E.coli UTI, Hyperkalemia, Severe anemia s/p transfusion, A.fib, urinary retention s/p morales, complicated UTI, MDR Enterococcus faecalis, Kluyvera ascorbata, Enterobacter cloacae, Oropharyngeal dysphagia s/p EGD. PSHx: hysterectomy, left hip due to fx, c-sec, knee allergies; see emr Fh/SH; no illicits; no cigs meds; see MAR ROS: unobtainable v/s revd PE: anicteric ns1s2 mod bs; MORALES soft nt nd no e/t; SCD skin dry flat affect labs/meds revd A/P: MARINA- IVF Indwelling morales Hypokalemia- replace Physical deconditioning- rehydrate Complicated UTI-iv abx Indwelling morales/Chr morales due to Urinary retention- consult urology Hypokalemia- replace Dysphagia- GI for PEG PAF- AV blockade DM2- hba1c/lipids HTN- treat HLD Physical deconditioning- PT consult Prop: AC Dispo: Hold AC; PEG placement needed per family. Melecio Ulloa MD, PhD.
--- NOTE | 2020-01-21 09:37 | NUR ---
pt refused am labs. aware
--- NOTE | 2020-01-21 10:02 | NUR ---
Met with patient. She is retired and lives at home with children. She states she is the only adult. She is independent w/ ADL's. She has home health and signed choice letter to continue them for SN/PT: [facility] DME: W/C, JOSUÉ, Mauricio PCP: Dr. Wilfred Ochoa. She has appt to see him on January 22 DC Plan: Return home with family and continue home health
[2020-01-21] MEDS ORDERED: SODIUM CHLORIDE 0.45% 1,000 ML IV SCH (10:15)
[2020-01-21] MEDS: ONDANSETRON HCL 4 MG ORAL DISINTEGRATING TAB PO SCH ×2 (10:51→17:25)
[2020-01-21 12:31] LABS: BASOPHILS % 0.5 % (0.0-1.0); EOSINOPHILS # (AUTO) 0.1 (0.0-0.4); EOSINOPHILS % 1.1 % (0.0-6.0); HEMATOCRIT 38.8 % (34.2-44.1); HEMOGLOBIN 12.6 g/dL (12.0-16.0); LYMPHOCYTES # (AUTO) 1.1 (1.0-3.2); LYMPHOCYTES % 17.5 % (18.0-39.1); MEAN CORPUSCULAR HEMOGLOBIN 29.6 pg (28-32); MEAN CORPUSCULAR HGB CONC 32.5 g/dL (31-35); MEAN CORPUSCULAR VOLUME 91.3 fL (81-99); MONOCYTES # (AUTO) 0.5 (0.2-0.8); MONOCYTES % 8.7 % (4.4-11.3); NEUTROPHILS # (AUTO) 4.4 (2.1-6.9); NEUTROPHILS % 71.5 % (38.7-80.0); PLATELET COUNT 151 x10e3/uL (140-360); RED BLOOD COUNT 4.25 x10e6/uL (3.6-5.1); RED CELL DISTRIBUTION WIDTH 15.7 % (11.7-14.4)
[2020-01-21 12:45] LABS: ANION GAP 13.9 mmol/L (8-16); CALCIUM 7.5 mg/dL (8.4-10.2); CREATININE, SERUM 0.97 mg/dL (0.57-1.11); POTASSIUM 3.9 mmol/L (3.5-5.1)
[2020-01-21] MEDS ORDERED: POTASSIUM CHLORIDE 20 MEQ TAB CR PO ONE (16:28)
[2020-01-21] MEDS ORDERED: RIVAROXABAN 20 MG TABLET PO SCH (17:00)
--- NOTE | 2020-01-21 18:14 | NUR ---
pt remained stable throughout shift. recheck of labs wnl. admin additional K. per MD ok to dc if pt ok and minimal nausea. pt states she wants to go home and nausea ok. unable to reach family at this time but pt states son should be swapping cars and coming back.
--- NOTE | 2020-01-21 19:00 | NUR ---
EJ removed from left neck with catheter intact. Pressure dressing to site. No bleeding noted. Pt tolerated procedure well. Instructed pt to leave dressing to site until 01/22/20.
--- NOTE | 2020-01-21 20:00 | NUR ---
PT WRITTEN DISCHARGE INSTRUCTIONS GIVEN TO PT . PT VERBALIZED UNDERSTANDING OF INSTRUCTIONS AND HOME MEDS GIVEN TO PT AND FAMILY. D/C HOME VIA W/C. VS STABLE.PT HAD BM PRIOR TO DISCHARGE. SANABRIA REMAINS PATENT AND TO GRAVITY- URINE CLEAR YELLOW .RESPIRATIONS EVEN AND UNLABORED. DENIES PAIN. DRESSING TO LEFT LEG OLD IO SITE DRY AND INTACT.
--- NOTE | 2020-01-22 06:26 | NUR ---
D/C summary Principal Dx: MARINA- IVF Indwelling morales Hypokalemia- replace Physical deconditioning- rehydrate Secondary Dx: Indwelling morales/Chr morales due to Urinary retention- consult urology Hypokalemia- replace Dysphagia- had esophageal dilatation recently; PAF- AV blockade DM2- hba1c/lipids HTN- treat HLD Physical deconditioning- PT consult Prop: AC Dispo: Hold AC; PEG placement needed per family. d/c home f/u pcp 1 week and GI 2-4 days for possible PEG stable d/c>35mins Melecio Ulloa MD, PhD.
== END 2020-01-21 20:00 | disposition home or self-care (01) ==
LOC: ER 15:15 → ERHOLD 18:47 → MED/SURG 21:52
PROVIDERS: ADMIT Internal Medicine; ATTEND Internal Medicine
DX: N17.9 Acute kidney failure, unspecified (principal); I48.20 Chronic atrial fibrillation, unspecified; E87.6 Hypokalemia; I10 Essential (primary) hypertension; E11.9 Type 2 diabetes mellitus without complications; E66.9 Obesity, unspecified; Z96.642 Presence of left artificial hip joint; R53.81 Other malaise; R13.12 Dysphagia, oropharyngeal phase; I48.0 Paroxysmal atrial fibrillation; E78.5 Hyperlipidemia, unspecified; N39.0 Urinary tract infection, site not specified; R33.8 Other retention of urine
CPT/HCPCS: 36415 ×2; 71045; 80048; 80053; 80162; 82550 ×2; 82553 ×2; 83880; 84443; 84484 ×2; 85025 ×2; 85610; 85730; 93005 ×2; 99284; G0378 ×2; J1160; J3480; Q0162